=== PATIENT | female | born 1995 | race Caucasian/White ===

== ENCOUNTER 2017-10-16 09:47 | Emergency (ER) | payer SELFPAY ==
[2017-10-16] MEDS ORDERED: Ondansetron ODT 4 MG TAB ONE ×2 (10:05→11:25)
[2017-10-16 10:30] LABS: #Eosinphils 0.1 thou/uL (0.0-0.7); #Monocytes 0.8 thou/uL (0.11-0.59); #Neutrophils 7.6 thou/uL (1.40-6.50); %Basophils 0.2 % (0.0-1.0); %Eosinophils 1.1 % (0.0-10.0); %Lymphocytes 10.7 % (21.0-51.0); %Monocytes 8.3 % (0.0-10.0); %Neutrophils 79.6 % (42.0-75.0); Hemoglobin 12.6 g/dL (12.0-16.0); Mean Corpuscular HGB CONC 34.4 g/dL (32.0-36.0); Mean Corpuscular Hemoglobin 27.8 pg (27.0-31.0); Mean Corpuscular Volume 80.7 fL (78.0-98.0); Mean Platelet Volume 6.6 fL (7.4-10.4); Platelet Count 259 thou/uL (130-400); RBC Distribution Width 13.2 % (11.5-14.5); Red Blood Cell (RBC) Count 4.53 mill/uL (4.20-5.40); White Blood Cell (WBC) Count 9.5 thou/uL (4.8-10.8)
[2017-10-16] MEDS ORDERED: Ketorolac Tromethamine 30 MG/ML VIAL ONE (10:36)
[2017-10-16 10:45] LABS: ALT (SGPT) 25 U/L (8-55); AST (SGOT) 21 U/L (5-34); Albumin 4.2 g/dL (3.5-5.0); Alkaline Phosphatase 127 U/L (40-150); Anion Gap 12 mmol/L (10-20); BUN (Urea Nitrogen) 12 mg/dL (7.0-18.7); Bilirubin, Total 0.4 mg/dL (0.2-1.2); Calc. Creatinine Clearance 0 mL/min (70-130); Calcium 9.3 mg/dL (7.8-10.44); Carbon Dioxide 22 mmol/L (22-29); Chloride 106 mmol/L (98-107); Estimated GFR-MDRD 82; Globulin 3.6 g/dL (2.4-3.5); Glucose 109 mg/dL (70-105); Potassium 3.8 mmol/L (3.5-5.1); Protein, Total 7.8 g/dL (6.0-8.3); Sodium 136 mmol/L (136-145)
[2017-10-16] MEDS ORDERED: ISOVUE-370 76%-LOCM 1 ML ONE (11:26)
[2017-10-16] MEDS ORDERED: Metoclopramide HCl 10 MG/2 ML VIAL ONE (11:48)
[2017-10-16 13:32] LABS: Bilirubin Negative (Negative); Blood, Urine Small (Negative); Clarity CLEAR (Clear); Glucose, Urine (Dipstick) Negative (Negative); Leukocyte Negative (Negative); Nitrite Negative (Negative); Protein, Urine (Dipstick) Negative (Neg-Trace); Specific Gravity, Urine 1.009 (1.002-1.036); Urobilinogen 0.2 mg/dL (0.2-1.0); pH, Urine 5.5 (5.0-9.0)
[2017-10-16 13:36] LABS: Bacteria/HPF Rare-Few HPF (None Seen); Hyaline Casts/LPF 0-3 HYALINE CAST LPF (0-3 Hyaline); Pathc Cast-AUWi Flag 0.58 (0-2.49); Squamous Epithelial 0-3 HPF (0-3); WBC/HPF 0-3 HPF (0-3)
[2017-10-16 13:39] LABS: Pregnancy Test - Urine (BHCG) Negative (Negative); Pregu Control Background? CLEAR/WHITE (CLR/WHITE); Pregu Control Bar Appear? YES (CONTROL BAR); Specific Gravity 1.009 (1.002-1.036)
[2017-10-16] MEDS ORDERED: Fentanyl 100 MCG/2 ML VIAL ONE (13:42)
--- NOTE | 2017-10-16 14:16 | CT ---
CT ABDOMEN AND PELVIS WITH IV CONTRAST: Date: 10-16-17 History: Abdominal pain with nausea and vomiting. Comparison: 06-09-15 FINDINGS: There is minimal atelectasis at each lung base. Lung bases are otherwise clear. Post cholecystectomy changes are again seen. The liver, spleen, pancreas, bilateral adrenal glands, kidneys, abdominal aorta, urinary bladder, [place] and adnexal structures demonstrate a normal CT appearance. The appendix is visualized and normal in caliber. The increased number and size of mesenteric lymph nodes has resolved compared to the prior exam. No e nlarged or increased number of mesenteric lymph nodes are seen on today's exam. There has been no oth er interval change from the prior exam. IMPRESSION: No acute findings are seen in the abdomen or pelvis. POS: [facility]
== END 2017-10-16 15:05 | disposition home or self-care (01) ==
LOC: ERS 09:47
DX: J02.9 Acute pharyngitis, unspecified (principal); R11.2 Nausea with vomiting, unspecified; F41.9 Anxiety disorder, unspecified; F32.9 Major depressive disorder, single episode, unspecified
CPT/HCPCS: 36415; 74177; 80053; 81003; 81015; 81025; 83690; 85025; 87081; 87086; 87430; 87804; 96361; 96365; 96375; J1885; J2765; J3010; Q0162

== ENCOUNTER 2018-10-15 17:41 | Day surgery (SDC) | payer OTHER ==
[2018-10-15 18:22] VITALS: BMI 42.8
[2018-10-15] MEDS ORDERED: hydrALAZINE 20 MG/ML VIAL SLOW IVP PRN (19:40)
[2018-10-15] MEDS ORDERED: Multivitamins, Adult 10 ML, Folic Acid 1 MG, Thiamine HCl 100 MG in Dextrose 5 %-0.45 %... IV SCH (20:00)
[2018-10-15 20:07] LABS: #Eosinphils 0.3 thou/uL (0.0-0.7); #Lymphocytes 3.4 thou/uL (1.20-3.40); #Monocytes 0.8 thou/uL (0.11-0.59); #Neutrophils 6.9 thou/uL (1.40-6.50); %Basophils 0.4 % (0.0-1.0); %Eosinophils 2.2 % (0.0-10.0); %Lymphocytes 29.7 % (21.0-51.0); %Neutrophils 60.7 % (42.0-75.0); Hemoglobin 11.5 g/dL (12.0-16.0); Mean Corpuscular HGB CONC 35.7 g/dL (32.0-36.0); Mean Corpuscular Hemoglobin 30.4 pg (27.0-31.0); Mean Corpuscular Volume 85.1 fL (78.0-98.0); Mean Platelet Volume 6.5 fL (7.4-10.4); Platelet Count 319 thou/uL (130-400); RBC Distribution Width 12.5 % (11.5-14.5); Red Blood Cell (RBC) Count 3.78 mill/uL (4.20-5.40); White Blood Cell (WBC) Count 11.3 thou/uL (4.8-10.8)
[2018-10-15 20:27] LABS: ALT (SGPT) 9 U/L (8-55); AST (SGOT) 10 U/L (5-34); Albumin 3.3 g/dL (3.5-5.0); Alkaline Phosphatase 169 U/L (40-150); Anion Gap 13 mmol/L (10-20); BUN (Urea Nitrogen) 7 mg/dL (7.0-18.7); Bilirubin, Total 0.2 mg/dL (0.2-1.2); Calc. Creatinine Clearance 195 mL/min (70-130); Calcium 9.2 mg/dL (7.8-10.44); Carbon Dioxide 20 mmol/L (22-29); Chloride 106 mmol/L (98-107); Estimated GFR-MDRD Greater than 90; Globulin 3.5 g/dL (2.4-3.5); Glucose 83 mg/dL (70-105); Potassium 3.7 mmol/L (3.5-5.1); Protein, Total 6.8 g/dL (6.0-8.3); Sodium 135 mmol/L (136-145)
[2018-10-15] MEDS ORDERED: Lactated Ringer's 1,000 ML IV SCH (20:45)
--- NOTE | 2018-10-15 21:35 | PRG ---
DATE OF SERVICE: 10/15/2018 PRIMARY OB: Kiara Matos DO CHIEF COMPLAINT: Diarrhea and abdominal pain. HISTORY OF PRESENT ILLNESS: The patient is a 23-year-old G2, P1 female with an intrauterine at 28 weeks and a day, who is presenting with a 2-week history of watery diarrhea, that has worsened in the last few days. The patient also reports that she is having cramping about 3 to 4 times an hour and has some lower back pain, that is constant and worse with activity and movement such as getting out of bed. The patient denies any sick contacts, travel potential sources of the infection. The patient reports that she has had about 7 episodes of diarrhea today, again all watery and nonbloody. The patient denies fever. Denies nausea or vomiting. Denies chest pain, shortness of breath, cough, any new rashes, hip problems, knee problems, muscle weakness, vaginal bleeding or leakage of fluid, urinary urgency. The patient does report she has burning when she pees, but that has been in her entire and it has already been evaluated by Dr. Matos. The patient reports urinating normally, light colored and regular. PAST MEDICAL HISTORY: Negative. PAST SURGICAL HISTORY: She has had her gallbladder removed and has had a . ALLERGIES: NO KNOWN DRUG ALLERGIES. MEDICATIONS: vitamins. SOCIAL HISTORY: Denies drug, alcohol or tobacco use. OB LABS: Unavailable at time of dictation. REVIEW OF SYSTEMS: Per HPI. PHYSICAL EXAMINATION: VITAL SIGNS: Blood pressure 124/80, heart rate 104, respiratory rate 18, saturating 93% to 95% on room air, and temperature 98.8. GENERAL: She appears to be in no acute distress. She is alert, oriented, cooperative, and pleasant to interact with. HEAD: Normocephalic and atraumatic. LUNGS: Clear to auscultation bilaterally. HEART: Regular rate and rhythm. ABDOMEN: Gravid, soft, and nontender. EXTREMITIES: Nontender and nonedematous. CERVIX: Closed per nursing staff. heart tracing shows a fetus with a baseline in the 140s with moderate long-term variability, appropriate for gestational age. Tocometer is not showing any contractions. LABORATORY DATA: CBC; white count 11.8, hemoglobin 11.5, hematocrit 32.2, and platelets 319,000. Chemistry; 135, potassium 3.7, chloride 106, BUN 7, creatinine 0.67, glucose of 83. AST of 10, ALT of 9, and alk phos of 169. fibronectin is pending. ASSESSMENT AND PLAN: The patient is a 23-year-old female presenting with diarrhea for the last 2 weeks and abdominal cramping. There is no evidence of labor right now. This diarrhea does not appear to have altered her electrolytes nor be causing dehydration, as the patient even here has had light-colored urine and she reports normal urinary habits. The patient has been counseled for the next few days to be using the BRAT diet and to avoid other foods. If she continues to persist in diarrhea over the weekend, the patient has been counseled to follow up with her primary OB. We have attempted to collect a stool sample for leukocytes; however, the patient has not had the need to have a bowel movement while she has been here. fibronectin is pending. I anticipated to be negative. If the patient is unable to have a bowel movement by the time that returns and if it is negative, the patient will be discharged home with the above-said instructions. Fetus has a category 1 tracing appropriate for gestational age. I have communicated to Dr. Matos about this patient. Job ID: [id number]
[2018-10-15 21:46] LABS: FFN Internal QC Analyzer PASS (PASS); FFN Internal QC Cassette PASS (PASS); Fetal Fibronectin Negative (Negative)
== END 2018-10-15 22:00 | disposition home or self-care (01) ==
LOC: L&D/OP 17:41
PROVIDERS: ATTEND Obstetrics & Gynecology
DX: O99.89 Other specified diseases and conditions complicating pregnancy, childbirth and the puerperium (principal); R19.7 Diarrhea, unspecified; R10.9 Unspecified abdominal pain; M54.5 Low back pain; Z3A.28 28 weeks gestation of pregnancy
CPT/HCPCS: 36415; 80053; 82731; 85025; 99283

== ENCOUNTER 2019-01-05 06:45 | Inpatient (IN) | payer BC, OTHER ==
--- NOTE | 2019-01-05 07:30 | PDOC.LDHP ---
Labor and Delivery H&P Chief complaint: scheduled section HPI: 23 yo @ 39w6d by 12 week CRL who presents for RCS. H/O LTCS x 1 for NRFHTs. Current with pylectasis, remainder of work up wnl. Current gestational age (weeks): 39 Due date: 01/06/19 Dating criteria: first trimester ultrasound Grav: 2 Para: 1 OB History Details: LTCS x 1 Current complications: other ( pylectasis) Abnormal US findings: Yes (Mild right pylectasis ) Current medications: pre-gabrielle vitamins Previous surgical history: low tranverse CS, cholecystectomy Allergies/Adverse Reactions: Allergies Allergy/AdvReac Type Severity Reaction Status Date / Time No Known Drug Allergies Allergy Verified 01/05/19 11:06 Social history: none - Physical Exam Vital signs reviewed and normal: yes General: NAD Heart: RRR Lungs: nonlabored breathing Abdomen: gravid Extremeties: no edema FHT: category 1 (130s, mod christophe, +accels, no decels) [place] contractions every: no ctx - Vaginal Exam cm dilated: 0 (cephalic) Effacement: 0% Station: -3 - OB Labs Blood type: B RH: positive Antibody Screen: negative HIV: negative RPR: negative HEPSAg: negative 1 hour GCT: negative GBS: positive Urine drug screen: negative Rubella: immune - Assessment 23 yo @ 39w6d H/O LTCS x1 Anemia Obesity - Plan Plan: to OR for section, informed consent obtained, anesthesia consult for pain management -: Pt has decided to undergo RCS as she has not undergone spontaneous labor
[2019-01-05] MEDS ORDERED: Ondansetron PF 4 MG/2 ML Vial IVP PRN ×2 (10:19→13:23)
[2019-01-05] MEDS ORDERED: Acetaminophen 500 MG TAB PO PRN (10:19)
[2019-01-05] MEDS ORDERED: hydrALAZINE 20 MG/ML VIAL SLOW IVP PRN ×2 (10:19→16:16)
[2019-01-05] MEDS ORDERED: Promethazine HCl 25 MG/ML VIAL IM PRN ×2 (10:19→13:23)
[2019-01-05] MEDS ORDERED: Bicitra 30 ML UDCUP PO SCH (10:19)
[2019-01-05] MEDS ORDERED: Butorphanol Tartrate 1 MG/ML VIAL SLOW IVP PRN (10:19)
[2019-01-05] MEDS ORDERED: CEFAZOLIN 2 GM in Premix Bag 1 BAG IVPB SCH (10:45)
[2019-01-05 10:52] LABS: Hemoglobin 11.6 g/dL (12.0-16.0); Mean Corpuscular HGB CONC 35.6 g/dL (32.0-36.0); Mean Corpuscular Hemoglobin 29.2 pg (27.0-31.0); Mean Platelet Volume 6.6 fL (7.4-10.4); Platelet Count 303 thou/uL (130-400); Red Blood Cell (RBC) Count 3.96 mill/uL (4.20-5.40)
[2019-01-05 11:04] VITALS: BMI 43.6
[2019-01-05 11:32] LABS: Syphilis Antibody Nonreactive (Nonreactive); Syphilis Antibody Index 0.03 S/CO (<1.00 Non-Reactive)
[2019-01-05 11:33] LABS: HBSAg Index 0.17 S/CO (0-0.99); HIV (1/2) Antibody/Antigen Non-Reactive (NonReactive); HIV 1/2 INDEX 0.17 S/CO (<1.00); Hep B Surf Ag Non-Reactive S/CO (NonReactive)
[2019-01-05] MEDS ORDERED: Fentanyl 100 MCG/2 ML VIAL ONE (11:50)
[2019-01-05] MEDS ORDERED: MORPHINE 5 MG/10 ML PF VIAL ONE (11:50)
[2019-01-05] MEDS ORDERED: Ondansetron PF 4 MG/2 ML Vial ONE (11:51)
[2019-01-05] MEDS ORDERED: ePHEDrine/0.9% NaCl/PF SYRINGE 50 mg/10 ml ONE (11:51)
[2019-01-05] MEDS ORDERED: Oxytocin 10 UNITS/ML VIAL ONE (11:51)
[2019-01-05] MEDS: Lactated Ringer's 1,000 ML IV SCH ×2 (11:55→18:48)
[2019-01-05] MEDS ORDERED: Promethazine HCl 25 MG SUPP PR PRN (13:23)
[2019-01-05] MEDS ORDERED: Naloxone HCl 0.4 mg/ml Vial IV PRN (13:23)
[2019-01-05] MEDS ORDERED: Ondansetron HCl/PF 4 MG/2 ML Vial IVP PRN (13:23)
[2019-01-05] MEDS ORDERED: Naloxone HCl 0.4 mg/ml Vial IVP PRN ×2 (13:23)
[2019-01-05] MEDS ORDERED: diphenhydrAMINE 50 MG/ML VIAL IVP PRN (13:23)
[2019-01-05] MEDS ORDERED: Acetaminophen 1,000 MG in Premix Bag 1 BAG IVPB PRN (13:26)
[2019-01-05] MEDS ORDERED: Ketorolac Tromethamine 30 MG/ML VIAL IVP SCH (13:30)
[2019-01-05] MEDS ORDERED: Communication Order-Pharmacy FS SCH (13:30)
[2019-01-05] MEDS ORDERED: Ketorolac Tromethamine 30 MG/ML VIAL ONE (13:30)
--- NOTE | 2019-01-05 13:50 | PDOC.OPDEL ---
OB Operative/Delivery Note Delivery Dr/Surgeon: Kiara Matos DO Assist: BRITTNEY Mckenzie Pre-Delivery Diagnosis: scheduled section Procedure/Post Delivery Dx: repeat low transverse CS Weeks gestation: 39 Anesthesia: spinal - Findings A Sex: male - 1 min: 8 - 5 min: 9 - Additional Findings/Plan Placenta delivered: spontaneous findings: low transverse hysterotomy without extension, normal uterus, normal tubes, normal ovaries Estimated blood loss: QBL 280 cc Compilations/Other Findings: in cephalic presentation Clear AF Normal appearing placenta No complications. Post delivery plan: routine recovery
[2019-01-05] MEDS ORDERED: diphenhydrAMINE 50 MG/ML VIAL ONE (14:50)
[2019-01-05] MEDS ORDERED: Bisacodyl 10 MG SUPP PR PRN (16:16)
[2019-01-05] MEDS ORDERED: Lanolin Ointment 7 GM TUBE TOP PRN (16:16)
[2019-01-05] MEDS ORDERED: Simethicone Chewable 80 MG TAB PO PRN (16:16)
[2019-01-05] MEDS ORDERED: Acetaminophen 325 MG TAB PO PRN (16:16)
[2019-01-05] MEDS ORDERED: NS / Oxytocin 40 units/1000ml 1,000 ML IV SCH (18:45)
[2019-01-05] MEDS: Ketorolac Tromethamine 30 MG/ML VIAL IVP SCH ×2 (18:47→23:57)
[2019-01-05] MEDS: diphenhydrAMINE 25 MG CAP PO PRN (20:24)
[2019-01-05] MEDS: Docusate Calcium (SURFAK) 240 MG CAP PO SCH (23:29)
[2019-01-05] MEDS: Ferrous Sulfate 325 MG TAB PO SCH (23:29)
[2019-01-06] MEDS: diphenhydrAMINE 25 MG CAP PO PRN ×2 (00:26→06:32)
[2019-01-06] MEDS ORDERED: Zolpidem Tartrate 5 MG TAB PO PRN (01:30)
[2019-01-06] MEDS: Lactated Ringer's 1,000 ML IV SCH ×3 (02:54→17:30)
[2019-01-06] MEDS: Ketorolac Tromethamine 30 MG/ML VIAL IVP SCH ×3 (05:52→17:29)
[2019-01-06 06:05] LABS: Hemoglobin 9.9 g/dL (12.0-16.0); Mean Corpuscular HGB CONC 34.9 g/dL (32.0-36.0); Mean Corpuscular Hemoglobin 29.3 pg (27.0-31.0); Mean Corpuscular Volume 83.9 fL (78.0-98.0); Mean Platelet Volume 6.4 fL (7.4-10.4); Platelet Count 245 thou/uL (130-400); RBC Distribution Width 12.9 % (11.5-14.5); Red Blood Cell (RBC) Count 3.38 mill/uL (4.20-5.40); White Blood Cell (WBC) Count 10.5 thou/uL (4.8-10.8)
--- NOTE | 2019-01-06 08:41 | PDOC.PP ---
Post Progress Note Post Day #: 1 Subjective: No concerns. Pain controlled. Minimal lochia. Breast feeding. Wood removed today. PO intake tolerated: yes Flatus: yes Ambulation: yes Vital Signs (12 hours) Temp Pulse Resp BP Pulse Ox 01/06/19 08:08 98.3 F 75 20 101/61 96 01/06/19 06:00 20 01/06/19 04:00 98.4 F 87 20 93/50 L 97 01/06/19 02:10 18 01/06/19 00:00 98.8 F 86 20 91/55 L 98 01/05/19 22:00 20 Weight Weight 216 lb - Physical Examination General: NAD Cardiovascular: RRR Respiratory: non-labored breathing Abdominal: no distention, appropriately TTP Fundus firm & at: below umbilicus Extremities: negative homans (B) Skin: CS incision dry & intact, no rash Neurological: no gross focal deficits Psychiatric: A&Ox3, normal affect Result Diagrams: 01/06/19 05:54 Additional Labs: Post Labs Blood Type B POSITIVE 01/05/19 11:10 Hep Bs Antigen Non-Reactive S/CO (NonReactive) 01/05/19 10:43 (1) delivery delivered Code(s): O82 - ENCOUNTER FOR DELIVERY WITHOUT INDICATION Status: Acute (2) Anemia Code(s): D64.9 - ANEMIA, UNSPECIFIED Status: Acute - Assessment/Plan PPD1 VSSAF Continue PP care. Fe supplement. Plan d/c 1-2 days
[2019-01-06] MEDS ORDERED: FLU VACC QS2019-20(6MOS UP)/PF 60 MCG/0.5 ML SYRINGE IM ONE (09:00)
--- NOTE | 2019-01-06 09:02 | OP ---
DATE OF PROCEDURE: 01/05/2019 PREOPERATIVE DIAGNOSES: 1. A 39-week and 6-day intrauterine . 2. History of low-transverse delivery x1. 3. Declines trial of labor as the patient has not undergone spontaneous labor. 4. Morbid obesity. 5. right pyelectasis. POSTOPERATIVE DIAGNOSES: 1. A 39-week and 6-day intrauterine . 2. History of low-transverse delivery x1. 3. Declines trial of labor as the patient has not undergone spontaneous labor. 4. Morbid obesity. 5. right pyelectasis. PROCEDURE PERFORMED: Repeat low-transverse delivery via Pfannenstiel skin incision. SURGEON: Kiara Matos DO SUPERVISOR MAIL CARRIERS: Marie Onofre PA-C. COMPLICATIONS: None. ANESTHESIA: Spinal. QUANTITATIVE BLOOD LOSS: 280 mL. IV FLUIDS: 1200 mL. URINARY OUTPUT: 300 mL. FINDINGS: Viable male infant in cephalic presentation with Apgars 8 and 9, weighing 7 pounds and 9 ounces. Clear amniotic fluid. Normal-appearing uterus, fallopian tubes, and ovaries bilaterally. Thin adhesions from the dome of the bladder to the lower uterine segment. INDICATIONS FOR THE PROCEDURE: Ms. Roxy Ray is a 23-year-old, G2, P1 at 39 weeks and 6 days with a history of one prior low transverse delivery. The patient was counseled on delivery options. She was not in labor and due to lack of spontaneous labor, the patient was counseled and elected for a repeat delivery due to comorbidities of morbid obesity and concern for possible macrosomia on previous ultrasounds. DESCRIPTION OF PROCEDURE: The patient was brought to the operating room. She was placed under spinal anesthesia with Duramorph. She was placed in supine position with a leftward tilt. A Wood catheter was placed. She was prepped and draped in sterile fashion. An official time-out was performed. She was given surgical prophylaxis with Ancef. Anesthesia was assessed and proven to be adequate. A Pfannenstiel skin incision was made through the previous scar tissues. This was carried down to the underlying fascial layer. The fascia was incised in the midline, extended bilaterally using Danielson scissors. The superior aspect of the fascial incision was grasped using Antonio clamps, tented upward, and dissected free from the underlying rectus abdominis muscles and the same was performed inferiorly. The dissection superiorly then required additional dissection due to some mild scar tissue. The peritoneal cavity was then inserted using sharp dissection and the rectus abdominis muscles were further reflected away from the fascia to allow for improved visualization. There was a thin adhesion on the dome of the bladder that required dissection using Metzenbaum scissors to allow inferior reflection of the bladder. This was performed with the bladder blade in situ. Once this was performed, the peritoneal cavity could be bluntly stretched allowing for the Harinder O retractor to be placed. This was appropriately secured. A low-transverse hysterotomy was made using the scalpel. The hysterotomy was extended using blunt dissection. The amniotic membranes were ruptured, noting clear amniotic fluid. Infant was then delivered in cephalic presentation without difficulty. 's cord was clamped and cut. The infant was handed to the waiting neonatology team. Cord blood was obtained and the placenta was then delivered spontaneously intact. The uterus was cleared of all clot and debris. The hysterotomy was closed in a running locking fashion using one Monocryl. Hysterotomy was hemostatic after closure. The pelvis was irrigated and cleared of all clot and debris. The bilateral adnexa were evaluated and normal in appearance. The Harinder O retractor was removed. The peritoneum was closed in a running fashion using 3-0 chromic. The rectus abdominis muscles were evaluated and hemostatic. The fascia was then closed in a running fashion using 0 PDS. The subcutaneous layer was copiously irrigated and hemostatic using the Bovie. This was closed using 3-0 Vicryl and the skin was closed using 4-0 Monocryl and Dermabond. The patient tolerated the procedure well. There were no complications. All counts were correct x3. Mother and were transferred to routine recovery. Job ID: [id number] [facility]
[2019-01-06] MEDS: Prenatal Vitamin 1 TAB PO SCH (09:27)
[2019-01-06] MEDS: Ferrous Sulfate 325 MG TAB PO SCH ×2 (09:27→20:09)
[2019-01-06] MEDS: Docusate Calcium (SURFAK) 240 MG CAP PO SCH ×2 (09:28→20:08)
[2019-01-06] MEDS: HYDROcodone/Acetaminophen 5/325 mg Tablet PO PRN ×2 (13:23→20:08)
[2019-01-06] MEDS: Ibuprofen 800 MG TAB PO SCH (14:42)
[2019-01-07] MEDS: Ibuprofen 800 MG TAB PO SCH ×3 (02:07→14:16)
[2019-01-07] MEDS: HYDROcodone/Acetaminophen 5/325 mg Tablet PO PRN ×2 (04:09→08:26)
[2019-01-07] MEDS: Lactated Ringer's 1,000 ML IV SCH ×3 (04:13→18:03)
--- NOTE | 2019-01-07 08:16 | PDOC.PP ---
Post Progress Note Post Day #: 2 Subjective: Pain controlled with oral meds. Minimal lochia. Breast feeding and pumping, however, having some issues. Pt has seen LC. Voiding. PO intake tolerated: yes Flatus: yes Ambulation: yes Vital Signs (12 hours) Temp Pulse Resp BP Pulse Ox 01/07/19 07:50 97.6 F 90 20 118/65 96 01/07/19 04:00 98.3 F 96 20 120/68 01/06/19 23:40 98.2 F 92 20 113/59 L Weight Weight 216 lb - Physical Examination General: NAD Cardiovascular: RRR Respiratory: non-labored breathing Abdominal: no distention, appropriately TTP Fundus firm & at: below umbilicus Extremities: negative homans (B) Skin: CS incision dry & intact, no rash Neurological: no gross focal deficits Psychiatric: A&Ox3, normal affect Result Diagrams: 01/06/19 05:54 Additional Labs: Post Labs Blood Type B POSITIVE 01/05/19 11:10 Hep Bs Antigen Non-Reactive S/CO (NonReactive) 01/05/19 10:43 (1) delivery delivered Code(s): O82 - ENCOUNTER FOR DELIVERY WITHOUT INDICATION Status: Acute (2) Anemia Code(s): D64.9 - ANEMIA, UNSPECIFIED Status: Acute - Assessment/Plan PPD2 VSSAF Pt meeting PP requirements. Continue help today and plan for d/c this afternoon if pt comfortable with breast feeding. Infant to have renal US today.
[2019-01-07] MEDS: Ferrous Sulfate 325 MG TAB PO SCH (08:30)
[2019-01-07] MEDS: Docusate Calcium (SURFAK) 240 MG CAP PO SCH (08:30)
[2019-01-07] MEDS: Prenatal Vitamin 1 TAB PO SCH (08:30)
[2019-01-07 16:20] VITALS: BP 103/66; TEMP 98.5
--- NOTE | 2019-01-08 07:08 | PQF ---
LALA LIMA [id number] CLINICAL DOCUMENTATION CLARIFICATION FORM: POST DISCHARGE Addendum to original discharge summary date: ____01/12/19 Late entry note date: __ DATE: 01/08/2019 ATTN:Lala Curry Please exercise your independent, professional judgment in responding to the clarification form. Clinical indicators are provided on the bottom of this form for your review Can you please specify the type of anemia based on clinical indicators below. Please check appropriate box(s): [ ] Acute blood loss anemia [ ] Post-op anemia related to acute blood loss [ ] Other diagnosis please specify____chronic iron deficiency and acute blood loss at surgery [ ] Unable to determine For continuity of documentation, please document condition throughout progress notes and discharge summary. Thank You. CLINICAL INDICATORS: HP 01/[address] Matos 23 yo @39 weeks HP 01/[address] Matos Assessment: Anemia Op note 01/[address] Matos Repeat low transverse delivery via Pfannenstiel skin incision Op note 01/[address] Matos Quantitative blood loss:280 ml laboratory: Hgb=11.6, 9.9 Hct=32.4, 28.4 RISK FACTORS: HP 01/05 Dr. Matos-39 weeks AOG HP 01/05 Dr. Matos- PMH: low transverse CS HP 01/05 Dr. Matos-Obesity BMI=43.6 OP note- Repeat CS TREATMENT: MAY 31 IV Oxytocin Home medication: vitamin 1 tab (This form is maintained as a part of the permanent medical record) 2014 [employer]. All Rights Reserved Neena [email or web address] [not provided] MTDD
== END 2019-01-07 18:15 | disposition home or self-care (01) | DRG 788 ==
LOC: L&D-LIB 10:08 → 3SW 16:43
PROVIDERS: ADMIT Obstetrics & Gynecology; ATTEND Obstetrics & Gynecology
PROC: 10D00Z1 Extraction of Products of Conception, Low, Open Approach (ICD-10-PCS; principal; 2019-01-06)
PROC: 3E02340 Introduction of Influenza Vaccine into Muscle, Percutaneous Approach (ICD-10-PCS; 2019-01-06)
DX: O34.211 Maternal care for low transverse scar from previous cesarean delivery (principal); O35.8XX0 Maternal care for other (suspected) fetal abnormality and damage, not applicable or unspecified; O99.824 Streptococcus B carrier state complicating childbirth; O99.214 Obesity complicating childbirth; E66.01 Morbid (severe) obesity due to excess calories; Z23 Encounter for immunization; Z90.49 Acquired absence of other specified parts of digestive tract; Z3A.39 39 weeks gestation of pregnancy; Z37.0 Single live birth; O99.02 Anemia complicating childbirth; D64.9 Anemia, unspecified
CPT/HCPCS: 36415; 85027; 86780; 86850; 86900; 86901; 87340; 87389; J0690; J1200; J1885; J2274; J2405; J2590; J3010; Q0163

== ENCOUNTER 2020-05-15 07:47 | Emergency (ER) | payer BC, OTHER, SELFPAY | END 2020-05-15 09:28 | disposition home or self-care (01) | LOC: ERS 07:47 | DX: H01.002 Unspecified blepharitis right lower eyelid (principal); H00.032 Abscess of right lower eyelid | CPT/HCPCS: 99283 ==

== ENCOUNTER 2020-08-23 12:57 | Emergency (ER) | payer SELFPAY ==
[2020-08-23] MEDS ORDERED: Ondansetron PF 4 MG/2 ML Vial ONE (13:14)
[2020-08-23] MEDS ORDERED: Acetaminophen 500 MG TAB ONE (13:14)
[2020-08-23] MEDS ORDERED: Ondansetron ODT 4 MG TAB ONE (13:14)
[2020-08-24 11:48] LABS: SARS-CoV-2 PCR by NAA Not Detected (NotDetected)
== END 2020-08-23 15:21 | disposition home or self-care (01) ==
LOC: ERS 12:57
DX: R05 Cough (principal); M79.10 Myalgia, unspecified site; Z20.822 Contact with and (suspected) exposure to COVID-19
CPT/HCPCS: 87804; 99283; J2405; Q0162; U0003; U0005

== ENCOUNTER 2020-11-26 11:26 | Inpatient (IN) | payer SELFPAY ==
[~2020-11-26 11:26] MED LIST: Iopamidol-370 76% 500 ML 1 ML ONE; Magnevist 469MG/ML 20 ML VIAL ONE
[2020-11-26] MEDS ORDERED: Magnesium 2 GM/50 ML BAG (IN WATER) ONE (12:02)
[2020-11-26] MEDS ORDERED: Ketorolac Tromethamine 30 MG/ML VIAL ONE (12:02)
[2020-11-26] MEDS ORDERED: Metoclopramide HCl 10 MG/2 ML VIAL ONE (12:02)
[2020-11-26] MEDS ORDERED: Acetaminophen 500 MG TAB ONE (12:02)
[2020-11-26] MEDS ORDERED: diphenhydrAMINE 50 MG/ML VIAL ONE (12:02)
[2020-11-26] MEDS ORDERED: methylPREDNISolone Sod Succ/PF 125 MG/2 ML VIAL ONE (12:02)
[2020-11-26] MEDS ORDERED: Acetaminophen 325 MG TAB PO PRN (15:41)
[2020-11-26] MEDS ORDERED: Ondansetron PF 4 MG/2 ML Vial IVP PRN (15:41)
[2020-11-26] MEDS ORDERED: Ondansetron ODT 4 MG TAB PO PRN (15:41)
[2020-11-26 16:18] LABS: #Lymphocytes 1.8 thou/uL (1.20-3.40); #Monocytes 0.2 thou/uL (0.11-0.59); #Neutrophils 16.3 thou/uL (1.40-6.50); %Basophils 0.1 % (0.0-1.0); %Eosinophils 0.2 % (0.0-10.0); %Lymphocytes 9.9 % (21.0-51.0); %Monocytes 0.8 % (0.0-10.0); Hemoglobin 13.2 g/dL (12.0-16.0); Mean Corpuscular HGB CONC 34.3 g/dL (32.0-36.0); Mean Corpuscular Hemoglobin 27.8 pg (27.0-31.0); Mean Corpuscular Volume 81.1 fL (78.0-98.0); Mean Platelet Volume 6.7 fL (7.4-10.4); Platelet Count 393 thou/uL (130-400); RBC Distribution Width 14.2 % (11.5-14.5); Red Blood Cell (RBC) Count 4.74 mill/uL (4.20-5.40); White Blood Cell (WBC) Count 18.3 thou/uL (4.8-10.8)
[2020-11-26 16:33] LABS: BHCG - Serum Negative (NEGATIVE); Pregs Control Background? CLEAR/WHITE (CLR/WHITE); Pregs Control Bar Appear? YES (CONTROL BAR)
[2020-11-26 16:35] LABS: Anion Gap 13 mmol/L (10-20); BUN (Urea Nitrogen) 12 mg/dL (7.0-18.7); Calc. Creatinine Clearance 0 mL/min (70-130); Calcium 9.6 mg/dL (7.8-10.44); Carbon Dioxide 21 mmol/L (22-29); Chloride 106 mmol/L (98-107); Glucose 117 mg/dL (70-105); Potassium 4.1 mmol/L (3.5-5.1); Sodium 136 mmol/L (136-145)
[2020-11-26] MEDS ORDERED: Dexamethasone 4 mg/ml Vial SLOW IVP SCH (17:30)
[2020-11-26] MEDS ORDERED: cefTRIAXone\\ROCEPHIN 2 GM VIAL ONE (17:36)
[2020-11-26] MEDS ORDERED: Sodium Chloride 0.9% 100 ML ONE (17:36)
[2020-11-26] MEDS ORDERED: Vancomycin 1 GM/200 ML BAG ONE (17:36)
[2020-11-26] MEDS ORDERED: Sodium Chloride 0.9% 1,000 ML IV SCH (18:15)
[2020-11-26] MEDS ORDERED: Sodium Chloride 0.9% (PF) 10 ML VIAL FS PRN (19:00)
[2020-11-26 20:02] VITALS: BMI 46.0
[2020-11-26] MEDS: diphenhydrAMINE 50 MG/ML VIAL IVP SCH (21:04)
[2020-11-26] MEDS: Prochlorperazine Edisylate 10 MG in Sodium Chloride 0.9% 50 ML IVPB SCH (21:22)
[2020-11-27] MEDS: Dexamethasone 4 mg/ml Vial SLOW IVP SCH ×3 (02:09→17:23)
[2020-11-27] MEDS: Prochlorperazine Edisylate 10 MG in Sodium Chloride 0.9% 50 ML IVPB SCH ×5 (02:09→22:54)
[2020-11-27] MEDS: diphenhydrAMINE 50 MG/ML VIAL IVP SCH ×5 (02:10→23:40)
[2020-11-27 05:30] LABS: Anion Gap 13 mmol/L (10-20); BUN (Urea Nitrogen) 19 mg/dL (7.0-18.7); Calc. Creatinine Clearance 162 mL/min (70-130); Calcium 9.2 mg/dL (7.8-10.44); Carbon Dioxide 20 mmol/L (22-29); Chloride 107 mmol/L (98-107); Glucose 169 mg/dL (70-105); Potassium 4.4 mmol/L (3.5-5.1); Sodium 136 mmol/L (136-145)
[2020-11-27 05:36] LABS: Band 4 % (5-11); Hemoglobin 12.3 g/dL (12.0-16.0); Lymphocytes 11 % (21-51); MDiff Complete? YES; Mean Corpuscular HGB CONC 33.4 g/dL (32.0-36.0); Mean Corpuscular Hemoglobin 27.3 pg (27.0-31.0); Mean Corpuscular Volume 81.7 fL (78.0-98.0); Mean Platelet Volume 6.9 fL (7.4-10.4); Monocytes 3 % (0-10); Neutrophil 82 % (42-75); Platelet Count 388 thou/uL (130-400); Platelet Morphology Comment Appears Adequate; RBC Distribution Width 14.3 % (11.5-14.5); RBC Morphology Normal; Red Blood Cell (RBC) Count 4.49 mill/uL (4.20-5.40); White Blood Cell (WBC) Count 22.5 thou/uL (4.8-10.8)
[2020-11-27] MEDS ORDERED: Vancomycin HCl 1.5 GM in Sodium Chloride 0.9% 250 ML 300 ML IVPB SCH (09:00)
[2020-11-27 10:54] LABS: Fluid, Glucose 91 mg/dL (Not Available); Fluid, Protein Less than 1.0 g/dL (Not Available)
[2020-11-27] MEDS: cefTRIAXone\\ROCEPHIN 2 GM in Sodium Chloride 0.9% 100 ML IVPB SCH ×2 (11:28→12:12)
[2020-11-27] MEDS ORDERED: AcetaZOLAMIDE 250 MG TAB PO SCH (12:30)
[2020-11-27] MEDS: Pantoprazole 40 MG VIAL IVP SCH (13:11)
[2020-11-27 13:40] LABS: CSF Source CSF; Clarity Clear (Clear); Tube # 4
[2020-11-27 13:44] LABS: Cell Count Non Hematic 20 %; Lymphocytes 79 %
[2020-11-27 14:00] LABS: Segmented Neutrophils 1 %
[2020-11-27] MEDS: AcetaZOLAMIDE 250 MG TAB PO SCH (22:54)
[2020-11-28] MEDS: diphenhydrAMINE 50 MG/ML VIAL IVP SCH ×2 (06:25→12:03)
[2020-11-28] MEDS: Prochlorperazine Edisylate 10 MG in Sodium Chloride 0.9% 50 ML IVPB SCH ×2 (07:22→12:58)
[2020-11-28 08:35] LABS: Vancomycin, Trough 1.9 ug/mL
[2020-11-28] MEDS: AcetaZOLAMIDE 250 MG TAB PO SCH (09:11)
[2020-11-28] MEDS: Pantoprazole 40 MG VIAL IVP SCH (09:12)
[2020-11-28 15:32] VITALS: BP 129/79; TEMP 98
== END 2020-11-28 17:04 | disposition home or self-care (01) | DRG 103 ==
LOC: ERS 11:26 → 3SE 15:47 → OBSVTOIN 15:47
PROVIDERS: ADMIT Family Medicine; ATTEND Internal Medicine
PROC: 00JU3ZZ Inspection of Spinal Canal, Percutaneous Approach (ICD-10-PCS; 2020-11-26)
PROC: 009U3ZX Drainage of Spinal Canal, Percutaneous Approach, Diagnostic (ICD-10-PCS; principal; 2020-11-27)
PROC: B01B1ZZ Fluoroscopy of Spinal Cord using Low Osmolar Contrast (ICD-10-PCS; 2020-11-27)
DX: G93.2 Benign intracranial hypertension (principal); Z68.41 Body mass index [BMI] 40.0-44.9, adult; Z79.899 Other long term (current) drug therapy; Z90.49 Acquired absence of other specified parts of digestive tract; Z82.69 Family history of other diseases of the musculoskeletal system and connective tissue; Z84.89 Family history of other specified conditions; D72.829 Elevated white blood cell count, unspecified; E66.01 Morbid (severe) obesity due to excess calories; D64.9 Anemia, unspecified
CPT/HCPCS: 36415; 62270; 70496; 70498; 70544; 70553; 80048; 80202; 82945; 84157; 84703; 85025; 85060; 87070; 87205; 89051; 96365; 96367; 96368; 96375; A9579; C9113; J0696; J0780; J1100; J1200; J1885; J2765; J2930; J3370; J3475; J3490; J7030; J7050; Q9967

== ENCOUNTER 2022-07-15 18:19 | Emergency (ER) | payer OTHER ==
[2022-07-15 19:05] LABS: #Basophils 0.1 thou/uL (0.0-0.2); #Eosinphils 0.1 thou/uL (0.0-0.7); #Lymphocytes 2.5 thou/uL (1.20-3.40); #Monocytes 0.9 thou/uL (0.11-0.59); #Neutrophils 15.9 thou/uL (1.40-6.50); %Basophils 0.4 % (0.0-1.0); %Eosinophils 0.3 % (0.0-10.0); %Lymphocytes 13.1 % (21.0-51.0); %Monocytes 4.5 % (0.0-10.0); %Neutrophils 81.7 % (42.0-75.0); Hemoglobin 12.5 g/dL (12.0-16.0); Mean Corpuscular HGB CONC 34.6 g/dL (32.0-36.0); Mean Corpuscular Hemoglobin 28.1 pg (27.0-31.0); Mean Corpuscular Volume 81.2 fl (78.0-98.0); Platelet Count 388 10x3/uL (130-400); RBC Distribution Width 14.2 % (11.5-14.5); Red Blood Cell (RBC) Count 4.45 mill/uL (4.20-5.40); White Blood Cell (WBC) Count 19.4 10x3/uL (4.8-10.8)
[2022-07-15 19:39] LABS: ALT (SGPT) 26 U/L (8-55); AST (SGOT) 12 U/L (5-34); Albumin 4.4 g/dL (3.5-5.0); Alkaline Phosphatase 126 U/L (40-110); Anion Gap 16 mmol/L (10-20); BUN (Urea Nitrogen) 22 mg/dL (7.0-18.7); Bilirubin, Total Less than 0.2 mg/dL (0.2-1.2); Calc. Creatinine Clearance 0 mL/min (70-130); Calcium 9.9 mg/dL (7.8-10.44); Carbon Dioxide 19 mmol/L (22-29); Chloride 108 mmol/L (98-107); Estimated GFR 73; Globulin 3.3 g/dL (2.4-3.5); Glucose 151 mg/dL (70-105); Magnesium 2.4 mg/dL (1.6-2.6); Potassium 3.9 mmol/L (3.5-5.1); Protein, Total 7.7 g/dL (6.0-8.3); Sodium 139 mmol/L (136-145)
== END 2022-07-15 20:55 | disposition home or self-care (01) ==
LOC: ERS 18:19
DX: B34.9 Viral infection, unspecified (principal); T78.40XA Allergy, unspecified, initial encounter
CPT/HCPCS: 36415; 71045; 80053; 83605; 83735; 84484; 85025; 93005